=== PATIENT | male | born 1950 | race Caucasian/White ===

== ENCOUNTER 2017-03-15 05:04 | Inpatient (IN) | payer OTHER ==
[~2017-03-15] VITALS: Ht 177.8 cm; Wt 93.4 kg
[2017-03-15] MEDS ORDERED: IV NORMAL SALINE 1000 ML BAG IV ONE (05:30)
[2017-03-15 05:39] LABS: BASOPHILS % (AUTO) 0.3 % (0.0-2.0); EOSINOPHILS # (AUTO) 0.1 K/uL (0.0-0.7); EOSINOPHILS % (AUTO) 1.1 % (0.0-7.0); HEMATOCRIT 32.8 % (40-50); LYMPHOCYTES # (AUTO) 0.6 K/UL (0.8-4.8); MEAN CORPUSCULAR HEMOGLOBIN 29.9 UUG (27.0-31.0); MEAN CORPUSCULAR HGB CONC 33 g/dL (32.0-37.0); MEAN CORPUSCULAR VOLUME 89.3 FL (82.0-92.0); MONOCYTES # (AUTO) 0.3 K/UL (0.1-1.30); MONOCYTES % (AUTO) 5.4 % (0.0-11.0); NEUTROPHILS # (AUTO) 5.2 K/UL (1.8-8.9); NEUTROPHILS % (AUTO) 84.2 % (38.5-71.5); PLATELET COUNT (AUTO) 216 K/UL (150-450); RED BLOOD CELL COUNT(AUTO) 3.67 MIL/UL (4.7-6.1); WHITE BLOOD COUNT (AUTO) 6.2 K/UL (4.0-11.2)
[2017-03-15] MEDS ORDERED: METF850T2 PO (05:45)
[2017-03-15] MEDS ORDERED: IBUP-1957 PO (05:45)
[2017-03-15] MEDS ORDERED: ASCO-382 PO (05:45)
[2017-03-15] MEDS ORDERED: MULT1TAB11 PO (05:45)
[2017-03-15] MEDS ORDERED: PIOG30TA10 PO (05:45)
[2017-03-15] MEDS ORDERED: FINA5TAB11 PO (05:45)
[2017-03-15] MEDS ORDERED: STOOL SOFTENER PO (05:45)
[2017-03-15] MEDS ORDERED: TERA2CAP4 PO (05:45)
[2017-03-15] MEDS ORDERED: BENA1TAB18 PO (05:45)
[2017-03-15 05:47] LABS: CREATININE 6.2 mg/dL (0.6-1.3)
[2017-03-15 05:57] LABS: BILIRUBIN,DIRECT 0.1 mg/dL (0.0-0.2); BILIRUBIN,TOTAL 0.3 mg/dL (0.2-1.0); TOTAL PROTEIN, SERUM 6.9 g/dL (6.4-8.2)
[2017-03-15] MEDS ORDERED: GLIM4TAB3 PO (05:59)
[2017-03-15] MEDS ORDERED: ATOR10TA PO (05:59)
--- NOTE | 2017-03-15 06:35 | NUR ---
Call placed to [facility], awaiting call back from Dr. Jeter.
--- NOTE | 2017-03-15 07:14 | NUR ---
Report given to Melvin. Patient has money with him, counted with Tae. Refrigerating Engineer Head notified to have money placed in safe.
--- NOTE | 2017-03-15 08:52 | NUR ---
pt was transfered to room #218. report was given to rn bone marrow transplant.
[2017-03-15 09:05] VITALS: BP 133/59
--- NOTE | 2017-03-15 09:05 | NUR ---
received patient from er, oriented to room, made comfortable , denies acute pain but more anxious with his condo being fix, being in the hospital now is inconvenient. emotional support provided.
[2017-03-15] MEDS ORDERED: ACETAMINOPHEN 325 MG TABLET PO PRN (11:00)
[2017-03-15] MEDS ORDERED: TEMAZEPAM 15 MG CAPSULE PO PRN (11:00)
[2017-03-15] MEDS ORDERED: ONDANSETRON 4 MG/2 ML VIAL IV PRN (11:00)
[2017-03-15] MEDS ORDERED: MORPHINE SULFATE 2 MG/1 ML DISP.SYRIN IV PRN (11:00)
[2017-03-15 11:15] LABS: *BILIRUBIN,URIN NEGATIVE (NEGATIVE); *BLOOD, URINE NEGATIVE (NEGATIVE); *CLARITY,URINE CLEAR (CLEAR); *COLOR,URINE YELLOW (YELLOW); *KETONES,URINE NEGATIVE (NEGATIVE); *PROTEIN,URINE 1+ (NEGATIVE); *UROBILINOGEN,URINE 0.2 E.U./dl (NORMAL); LEUKOCYTE ESTERASE ,URINE NEGATIVE (NEGATIVE); NITRITE, URINE NEGATIVE (NEGATIVE); UGLUCOSE NEGATIVE (NEGATIVE)
[2017-03-15] MEDS ORDERED: DEXTROSE 50% 50 ML DISP.SYRIN IV PRN (11:15)
[2017-03-15 11:40] VITALS: BP 136/65
[2017-03-15 11:41] LABS: BACTERIA,URINE NONE SEEN /HPF (NONE SEEN); RBC,URINE 0-3 /HPF (0-3); SQUAMOUS EPITHELIAL CELL,UR FEW /HPF (NONE SEEN); WBC,URINE 0-3 /HPF (0-3)
[2017-03-15 11:42] LABS: MUCUS,URINE FEW /LPF (0-FEW); RENAL EPITHELIAL CELLS,URINE MODERATE /LPF (NONE SEEN)
[2017-03-15] MEDS ORDERED: TEMAZEPAM 7.5 MG CAPSULE PO PRN (11:45)
[2017-03-15] MEDS: BLOOD SUGAR DIAGNOSTIC 1 EACH STRIP VI SCH ×4 (11:50→21:18)
[2017-03-15] MEDS: IV 1/2NS 1000 ML 1,000 ML IV PRN ×2 (12:03→23:57)
[2017-03-15 15:43] VITALS: BP 129/65
[2017-03-15 16:37] LABS: *BILIRUBIN,URIN NEGATIVE (NEGATIVE); *BLOOD, URINE NEGATIVE (NEGATIVE); *CLARITY,URINE CLEAR (CLEAR); *COLOR,URINE YELLOW (YELLOW); *KETONES,URINE NEGATIVE (NEGATIVE); *PROTEIN,URINE TRACE (NEGATIVE); *UROBILINOGEN,URINE 0.2 E.U./dl (NORMAL); LEUKOCYTE ESTERASE ,URINE NEGATIVE (NEGATIVE); NITRITE, URINE NEGATIVE (NEGATIVE); UGLUCOSE NEGATIVE (NEGATIVE)
--- NOTE | 2017-03-15 17:00 | NUR ---
friends at bedside, supportive of patient care. patient glad of primary and consult visit. feeling much better, less anxious.
[2017-03-15] MEDS: INSULIN REGULAR, HUMAN 300 UNIT/3 ML VIAL SQ PRN ×2 (17:29→21:21)
[2017-03-15 17:32] LABS: MUCUS,URINE FEW /LPF (0-FEW); SQUAMOUS EPITHELIAL CELL,UR FEW /HPF (NONE SEEN)
--- NOTE | 2017-03-15 19:35 | NUR ---
PT RECEIVED IN BED, AWAKE AND COMFORTABLE. ABLE TO MAKE NEEDS KNOWN. ORIENTED TO ROOM. V/S STABLE. NO SIGNS OF ACUTE DISTRESS NOTED. PT DOES NOT COMPLAIN OF PAIN AT THIS TIME. 73 SINUS RHYTHM ON THE TELE MONITOR. IVF INFUSING. SAFETY MEASURES IMPLEMENTED. CALL LIGHT WITHIN REACH. WILL CONTINUE TO MONITOR.
[2017-03-15 20:00] VITALS: BP 117/60
[2017-03-15] MEDS ORDERED: DOCUSATE SODIUM 250 MG CAPSULE PO SCH (21:00)
[2017-03-15] MEDS: TERAZOSIN 2 MG CAPSULE PO SCH (21:14)
[2017-03-15] MEDS: ATORVASTATIN 10 MG TABLET PO SCH (21:14)
[2017-03-15] MEDS: DOCUSATE SODIUM 100 MG CAPSULE PO SCH (21:14)
[2017-03-16 04:00] VITALS: BP 119/61
--- NOTE | 2017-03-16 06:09 | NUR ---
END OF SHIFT NOTES. PT SLEPT WELL THROUGHOUT SHIFT. V/S STABLE. NO SIGNS OF ACUTE DISTRESS NOTED. NO COMPLAINTS OF PAIN THROUGHOUT SHIFT. IVF INFUSING. 77 SINUS RHYTHM WITH SOME PVC'S ON THE TELE MONITOR. NEED ATTENDED. SAFETY MAINTAINED. CALL LIGHT WITHIN REACH.
[2017-03-16] MEDS: PANTOPRAZOLE SODIUM 40 MG TABLET.DR PO SCH (06:29)
[2017-03-16] MEDS: BLOOD SUGAR DIAGNOSTIC 1 EACH STRIP VI SCH ×4 (06:32→20:51)
[2017-03-16 07:00] LABS: THYROID STIMULATING HORMONE 5.436 mIU/mL (0.358-3.740)
[2017-03-16 07:01] LABS: BASOPHILS % (AUTO) 0.8 % (0.0-2.0); BILIRUBIN,TOTAL 0.3 mg/dL (0.2-1.0); CREATININE 2.6 mg/dL (0.6-1.3); EOSINOPHILS # (AUTO) 0.1 K/uL (0.0-0.7); EOSINOPHILS % (AUTO) 2.5 % (0.0-7.0); HEMOGLOBIN 10.2 G/DL (14.0-18.0); LYMPHOCYTES # (AUTO) 1.5 K/UL (0.8-4.8); LYMPHOCYTES % (AUTO) 26.4 % (20.5-51.5); MAGNESIUM 2.1 mg/dL (1.8-2.4); MEAN CORPUSCULAR HEMOGLOBIN 30.8 UUG (27.0-31.0); MEAN CORPUSCULAR HGB CONC 34 g/dL (32.0-37.0); MEAN CORPUSCULAR VOLUME 90.4 FL (82.0-92.0); MONOCYTES # (AUTO) 0.4 K/UL (0.1-1.30); MONOCYTES % (AUTO) 7.6 % (0.0-11.0); NEUTROPHILS # (AUTO) 3.8 K/UL (1.8-8.9); NEUTROPHILS % (AUTO) 62.7 % (38.5-71.5); PHOSPHOROUS 4.3 mg/dL (2.5-4.9); PLATELET COUNT (AUTO) 193 K/UL (150-450); POTASSIUM 4.2 mmol/L (3.5-5.1); RED BLOOD CELL COUNT(AUTO) 3.32 MIL/UL (4.7-6.1); TOTAL PROTEIN, SERUM 5.6 g/dL (6.4-8.2); WHITE BLOOD COUNT (AUTO) 5.8 K/UL (4.0-11.2)
[2017-03-16] MEDS: GLIMEPIRIDE 4 MG TABLET PO SCH (08:29)
[2017-03-16] MEDS: PIOGLITAZONE HCL 30 MG TABLET PO SCH (08:29)
[2017-03-16] MEDS: FINASTERIDE 5 MG TABLET PO SCH (08:29)
[2017-03-16 11:08] VITALS: BP 136/64
[2017-03-16] MEDS: INSULIN REGULAR, HUMAN 300 UNIT/3 ML VIAL SQ PRN ×3 (11:54→20:54)
[2017-03-16] MEDS: IV 1/2NS 1000 ML 1,000 ML IV PRN (11:55)
--- NOTE | 2017-03-16 14:49 | NUR ---
Pt alert and oriented x 4. Ambulatory and able to walk to bathroom with good gait and balance. Pt denies any c/o pain. Call light is within reach.
[2017-03-16 16:02] VITALS: BP 120/74
--- NOTE | 2017-03-16 18:00 | NUR ---
Pt is in no acute distress. Pt denies any c/o pain.
[2017-03-16 20:00] VITALS: BP 117/65
--- NOTE | 2017-03-16 20:00 | NUR ---
PT RECEIVED SITTING UP IN BED, NO ACUTE DISTRESS NOTED. AOX4 PLEASANT UPON APPROACH. VITAL SIGNS WNL. PT LUNG SOUNDS CLEAR WITH AUSCULTATION. RECEIVING IVF IN RIGHT ARM, INTACT AND PATENT. BED IN LOW AND LOCKED POSITION. CALL LIGHT WITHIN REACH.
[2017-03-16] MEDS: DOCUSATE SODIUM 100 MG CAPSULE PO SCH (20:50)
[2017-03-16] MEDS: ATORVASTATIN 10 MG TABLET PO SCH (20:50)
[2017-03-16] MEDS: TERAZOSIN 2 MG CAPSULE PO SCH (20:51)
--- NOTE | 2017-03-16 22:00 | NUR ---
PT COMPLIANT WITH MEDICATIONS AT BEDTIME. FINGERSTICK 177, NO S/S HYPERGLYCEMIA. WILL CONTINUE TO MONITOR FOR SAFETY.
[2017-03-17] VITALS: BP 111/68
[2017-03-17] MEDS: IV 1/2NS 1000 ML 1,000 ML IV PRN (00:11)
[2017-03-17 04:00] VITALS: BP 128/65
[2017-03-17] MEDS: PANTOPRAZOLE SODIUM 40 MG TABLET.DR PO SCH (06:43)
[2017-03-17] MEDS: BLOOD SUGAR DIAGNOSTIC 1 EACH STRIP VI SCH ×2 (06:43→11:30)
[2017-03-17] MEDS: GLIMEPIRIDE 4 MG TABLET PO SCH (08:31)
[2017-03-17] MEDS: PIOGLITAZONE HCL 30 MG TABLET PO SCH (08:31)
[2017-03-17] MEDS: FINASTERIDE 5 MG TABLET PO SCH (08:31)
[2017-03-17 08:36] LABS: CREATININE 1.6 mg/dL (0.6-1.3); POTASSIUM 4.1 mmol/L (3.5-5.1)
[2017-03-17 09:09] LABS: BASOPHILS % (AUTO) 0.5 % (0.0-2.0); EOSINOPHILS # (AUTO) 0.2 K/uL (0.0-0.7); EOSINOPHILS % (AUTO) 2.9 % (0.0-7.0); HEMATOCRIT 31.8 % (40-50); HEMOGLOBIN 10.8 G/DL (14.0-18.0); LYMPHOCYTES # (AUTO) 1.4 K/UL (0.8-4.8); LYMPHOCYTES % (AUTO) 25.2 % (20.5-51.5); MEAN CORPUSCULAR HEMOGLOBIN 30.4 UUG (27.0-31.0); MEAN CORPUSCULAR HGB CONC 34 g/dL (32.0-37.0); MEAN CORPUSCULAR VOLUME 89.7 FL (82.0-92.0); MONOCYTES # (AUTO) 0.4 K/UL (0.1-1.30); MONOCYTES % (AUTO) 7.2 % (0.0-11.0); NEUTROPHILS # (AUTO) 3.5 K/UL (1.8-8.9); NEUTROPHILS % (AUTO) 64.2 % (38.5-71.5); PLATELET COUNT (AUTO) 223 K/UL (150-450); RED BLOOD CELL COUNT(AUTO) 3.55 MIL/UL (4.7-6.1); WHITE BLOOD COUNT (AUTO) 5.5 K/UL (4.0-11.2)
[2017-03-17 12:00] VITALS: BP 136/70
[2017-03-17 14:06] LABS: A/G RATIO 1.5 (0.7-1.7); ALBUMIN 3.1 g/dL (2.9-4.4); ALPHA-1-GLOBULIN 0.2 g/dL (0.0-0.4); ALPHA-2-GLOBULIN 0.7 g/dL (0.4-1.0); BETA GLOBULIN 0.6 g/dL (0.7-1.3); GAMMA GLOBULIN 0.5 g/dL (0.4-1.8); GLOBULIN, TOTAL 2.1 g/dL (2.2-3.9); M-SPIKE Not Observed g/dL (Not Observed)
--- NOTE | 2017-03-17 14:55 | NUR ---
Awaiting possible d/c orders from DR braun secondary to pts kidney fx trending down. PT denies any c/o pain. Call light is within reach.
[2017-03-17 15:42] VITALS: BP 142/76
[2017-03-17] MEDS ORDERED: BENA20TA2 PO (15:52)
--- NOTE | 2017-03-17 16:30 | NUR ---
Discharge instructions given to patient - pt verbalized understanding. Pharmacist educated and went over pts medications. New prescriptions given to pt. Prescription Copy made to the chart. Pt verbalized education. PT made appt to his PMD this FRIDAY appt set up. Pt denies any further c/o pain. Pts valuables given to pt. Got pt's valuables from the locked belongings down stairs- pt had money. receipt and valuable (MONEY inside) opend with me and andother nurse emigdio. Pt refused to count in front of two nurse and states that "its all here." IV d/c. PT sent home without any acute distress.
== END 2017-03-17 16:40 | disposition home or self-care (01) | DRG 683 ==
LOC: ER 05:09 → TELE 08:42 → MED 03-17 11:10
PROVIDERS: ADMIT Internal Medicine; ATTEND Internal Medicine
DX: N17.0 Acute kidney failure with tubular necrosis (principal); M62.82 Rhabdomyolysis; T38.3X5A Adverse effect of insulin and oral hypoglycemic [antidiabetic] drugs, initial encounter; T39.315A Adverse effect of propionic acid derivatives, initial encounter; T50.2X5A Adverse effect of carbonic-anhydrase inhibitors, benzothiadiazides and other diuretics, initial encounter; Y92.009 Unspecified place in unspecified non-institutional (private) residence as the place of occurrence of the external cause; N40.0 Benign prostatic hyperplasia without lower urinary tract symptoms; D64.9 Anemia, unspecified; E66.3 Overweight; Z68.29 Body mass index [BMI] 29.0-29.9, adult; I10 Essential (primary) hypertension; Z87.891 Personal history of nicotine dependence; E78.5 Hyperlipidemia, unspecified; E11.649 Type 2 diabetes mellitus with hypoglycemia without coma; Z79.84 Long term (current) use of oral hypoglycemic drugs; Z79.899 Other long term (current) drug therapy; E86.0 Dehydration; R26.9 Unspecified abnormalities of gait and mobility; R23.3 Spontaneous ecchymoses
CPT/HCPCS: 36415; 70030-TC; 71010; 76770; 83550; 83735; 83970; 84100; 84153; 84155; 84156; 84165; 84300; 84443; 85025; 85730; 87086; 93005; J1815; J3490; J7030